=== PATIENT | female | born 1990 | race Caucasian/White ===

== ENCOUNTER 2017-01-05 22:12 | Emergency (ER) | payer SELFPAY ==
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
--- NOTE | 2017-01-06 02:02 | ED ORDER SUMMARY ---
..... Patient: BRIDGET MCKNIGHT OrderSheet [facility] VisitID: [id number] [place] [address] 26y, F Registration Date/Time: 01/05/2017 ORDER SHEET Weight: 104.3 kg Allergies: No Known Drug Allergy GENERAL ORDERS: GC/Chlamydia, Urine (Urine, Clean Catch) (debbie and initial stream (source is incorrect)) Urgent (00:34 01/06/2017 Jeanette Horn) (Ack 0:37 SRedmond) (0:59 TBowen R.N.) CBC w Diff Urgent (00:01/06/2017 Jeanette Horn) (Ack 0:37 SRedmond) (0:55 TBowen R.N.) CMP Urgent (00:01/06/2017 Jeanette Horn) (Ack 0:37 SRedmond) (0:55 TBowen R.N.) UA-Culture if indicated Urgent (00:01/06/2017 Jeanette Horn) (Ack 0:37 SRedmond) (0:59 TBowen R.N.) Urine Urgent (00:01/06/2017 Jeanette Horn) (Ack 0:37 SRedmond) (0:59 TBowen R.N.) Hepatitis Evaluation VII Urgent (00:01/06/2017 Jeanette Horn) (Ack 0:37 SRedmond) (0:55 TBowen R.N.) HIV I and II Urgent (00:01/06/2017 Jeanette Horn) (Ack 0:37 SRedmond) (0:55 TBowen R.N.) Chest 2V Urgent (:01/06/2017 Jeanette Horn) (1:11 LMuller) Lumbar Spine 2 or 3V Urgent (:01/06/2017 Jeanette Horn) (1:11 LMuller) MEDICATION ORDERS: Azithromycin PO 1000 mg (NOW) (00:35 01/06/2017 Jeanette Horn) (0:54 TBowen R.N.) Ceftriaxone IM 250 mg (once now with lidocaine) (00:35 01/06/2017 Jeanette Horn) (0:54 TBownoel R.N.) Lidocaine Injection 1% (with ceftriaxone) (00:35 01/06/2017 Jeanette Horn) (0:54 TBownoel R.N.) Flagyl PO 1000 mg (NOW) (00:37 01/06/2017 Jeanette Horn) (0:54 TBowen R.N.) Hydrocodone-APAP PO 5/325 mg (NOW, HIGH ALERT MEDICATION) (01:01/06/2017 Jeanette Horn) (Cancelled: Duplicate Order1:13 Jeanette Horn) Toradol IM 60 mg (NOW) (01:01/06/2017 Jeanette Horn) (1:26 TBownoel R.N.) IV FLUIDS: ORDER SHEET NOTES: [Electronically signed by Sandee Soto R.N. (02:15 01/06/2017)] [Electronically signed by Elias Harley Dr. (02:37 01/11/2017)] [Electronically locked/signed by Sandee Soto R.N. (02:15 01/06/2017)]
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
--- NOTE | 2017-01-06 02:02 | ED ORDER SUMMARY ---
..... Patient: BRIDGET MCKNIGHT OrderSheet [facility] VisitID: [id number] [place] [address] 26y, F Registration Date/Time: 01/05/2017 ORDER SHEET Weight: 104.3 kg Allergies: No Known Drug Allergy GENERAL ORDERS: GC/Chlamydia, Urine (Urine, Clean Catch) (debbie and initial stream (source is incorrect)) Urgent (00:34 01/06/2017 Jeanette Horn) (Ack 0:37 SRedmond) (0:59 TBowen R.N.) CBC w Diff Urgent (00:01/06/2017 Jeanette Horn) (Ack 0:37 SRedmond) (0:55 TBowen R.N.) CMP Urgent (00:01/06/2017 Jeanette Horn) (Ack 0:37 SRedmond) (0:55 TBowen R.N.) UA-Culture if indicated Urgent (00:01/06/2017 Jeanette Horn) (Ack 0:37 SRedmond) (0:59 TBowen R.N.) Urine Urgent (00:01/06/2017 Jeanette Horn) (Ack 0:37 SRedmond) (0:59 TBowen R.N.) Hepatitis Evaluation VII Urgent (00:01/06/2017 Jeanette Horn) (Ack 0:37 SRedmond) (0:55 TBowen R.N.) HIV I and II Urgent (00:01/06/2017 Jeanette Horn) (Ack 0:37 SRedmond) (0:55 TBowen R.N.) Chest 2V Urgent (:01/06/2017 Jeanette Horn) (1:11 LMuller) Lumbar Spine 2 or 3V Urgent (:01/06/2017 Jeanette Horn) (1:11 LMuller) MEDICATION ORDERS: Azithromycin PO 1000 mg (NOW) (00:35 01/06/2017 Jeanette Horn) (0:54 TBowen R.N.) Ceftriaxone IM 250 mg (once now with lidocaine) (00:35 01/06/2017 Jeanette Horn) (0:54 TBownoel R.N.) Lidocaine Injection 1% (with ceftriaxone) (00:35 01/06/2017 Jeanette Horn) (0:54 TBownoel R.N.) Flagyl PO 1000 mg (NOW) (00:37 01/06/2017 Jeanette Horn) (0:54 TBowen R.N.) Hydrocodone-APAP PO 5/325 mg (NOW, HIGH ALERT MEDICATION) (01:01/06/2017 Jeanette Horn) (Cancelled: Duplicate Order1:13 Jeanette Horn) Toradol IM 60 mg (NOW) (01:01/06/2017 Jeanette Horn) (1:26 TBownoel R.N.) IV FLUIDS: ORDER SHEET NOTES: [Electronically signed by Sandee Soto R.N. (02:15 01/06/2017)] [Electronically signed by Elias Harley Dr. (02:37 01/11/2017)] [Electronically locked/signed by Sandee Soto R.N. (02:15 01/06/2017)]
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
--- NOTE | 2017-01-11 02:38 | ED MAR SUMMARY ---
..... Medication Administration Record Merged With [facility] [address] [place] [address] Patient: BRIDGET MCKNIGHT Visit ID: [id number] 26y, F Weight: 104.3 kg Height/Length: 63 in BMI: 40.7 ALLERGIES: No Known Drug Allergy Given 01/06/2017 Lm R.N. Medication Administered: AZITHROMYCIN [PO], Dose: 1000 mg PO. Medication Ordered: Azithromycin PO 1000 mg (NOW). Given :01/06/2017 Lm, R.N. Medication Administered: CEFTRIAXONE [IM], Dose: 250 mg IM. Medication Ordered: Ceftriaxone IM 250 mg (once now with lidocaine). Given 01/06/2017 Lm R.N. Medication Administered: LIDOCAINE [INJECTION], Dose: 1 % Injection. Medication Ordered: Lidocaine Injection 1% (with ceftriaxone). Given 01/06/2017 Lm R.N. Medication Administered: FLAGYL [PO] (METRONIDAZOLE), Dose: 1000 mg PO. Medication Ordered: Flagyl PO 1000 mg (NOW). Given 01/06/2017 Lm, R.N. Medication Administered: TORADOL [IM] (KETOROLAC TROMETHAMINE), Dose: 60 mg IM. Medication Ordered: Toradol IM 60 mg (NOW).
--- NOTE | 2017-01-11 02:38 | ED MED RECONCILIATION SUMMARY ---
Patient: BRIDGET MCKNIGHT Medication Reconciliation Report [facility] VisitID: [id number] [place] [address] 26y, F Registration Date/Time: 01/05/2017 Weight: 104.3 kg Height/Length: 63 in. BMI: 40.7 ALLERGIES: No Known Drug Allergy The patient's Home Medications are listed below: NONE. The source(s) of the original Home Medication information: Not obtained. The following Medications were given to the patient in the Emergency Department: Azithromycin [PO] PO 1000 mg, administered: 01/06/2017 12:54:00 AM Flagyl [PO] PO 1000 mg, administered: 01/06/2017 12:54:00 AM Ceftriaxone [IM] IM 250 mg, administered: 01/06/2017 12:54:00 AM Lidocaine [Injection] Injection 1 %, administered: 01/06/2017 12:54:00 AM Toradol [IM] IM 60 mg, administered: 01/06/2017 1:26:00 AM The following Medications were prescribed to the patient: Cephalexin 500 mg: take 1 capsule orally every 8 hours for 5 days. No refill.(Disp 15 caps) -- lEias Harley Dr. [place] 5 mg / 325 mg tablets: take 1 orally every 6 hours as needed for pain. Dispense twelve (12). No refill. Substitution is permissible. -- Elias Harley Dr.
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
--- NOTE | 2017-01-11 02:38 | ED MED RECONCILIATION SUMMARY ---
Patient: BRIDGET MCKNIGHT Medication Reconciliation Report [facility] VisitID: [id number] [place] [address] 26y, F Registration Date/Time: 01/05/2017 Weight: 104.3 kg Height/Length: 63 in. BMI: 40.7 ALLERGIES: No Known Drug Allergy The patient's Home Medications are listed below: NONE. The source(s) of the original Home Medication information: Not obtained. The following Medications were given to the patient in the Emergency Department: Azithromycin [PO] PO 1000 mg, administered: 01/06/2017 12:54:00 AM Flagyl [PO] PO 1000 mg, administered: 01/06/2017 12:54:00 AM Ceftriaxone [IM] IM 250 mg, administered: 01/06/2017 12:54:00 AM Lidocaine [Injection] Injection 1 %, administered: 01/06/2017 12:54:00 AM Toradol [IM] IM 60 mg, administered: 01/06/2017 1:26:00 AM The following Medications were prescribed to the patient: Cephalexin 500 mg: take 1 capsule orally every 8 hours for 5 days. No refill.(Disp 15 caps) -- Elias Harley Dr. [place] 5 mg / 325 mg tablets: take 1 orally every 6 hours as needed for pain. Dispense twelve (12). No refill. Substitution is permissible. -- Elias Harley Dr.
--- NOTE | 2017-01-11 02:38 | ED MAR SUMMARY ---
..... Medication Administration Record Merged With [facility] [address] [place] [address] Patient: BRIDGET MCKNIGHT Visit ID: [id number] 26y, F Weight: 104.3 kg Height/Length: 63 in BMI: 40.7 ALLERGIES: No Known Drug Allergy Given 01/06/2017 Lm R.N. Medication Administered: AZITHROMYCIN [PO], Dose: 1000 mg PO. Medication Ordered: Azithromycin PO 1000 mg (NOW). Given :01/06/2017 Lm, R.N. Medication Administered: CEFTRIAXONE [IM], Dose: 250 mg IM. Medication Ordered: Ceftriaxone IM 250 mg (once now with lidocaine). Given 01/06/2017 Lm R.N. Medication Administered: LIDOCAINE [INJECTION], Dose: 1 % Injection. Medication Ordered: Lidocaine Injection 1% (with ceftriaxone). Given 01/06/2017 Lm R.N. Medication Administered: FLAGYL [PO] (METRONIDAZOLE), Dose: 1000 mg PO. Medication Ordered: Flagyl PO 1000 mg (NOW). Given 01/06/2017 Lm, R.N. Medication Administered: TORADOL [IM] (KETOROLAC TROMETHAMINE), Dose: 60 mg IM. Medication Ordered: Toradol IM 60 mg (NOW).
== END 2017-01-06 02:05 | disposition home or self-care (01) ==
LOC: ED SRH 22:12
DX: T76.21XA Adult sexual abuse, suspected, initial encounter (principal); N39.0 Urinary tract infection, site not specified; S20.211A Contusion of right front wall of thorax, initial encounter; S30.0XXA Contusion of lower back and pelvis, initial encounter; S30.1XXA Contusion of abdominal wall, initial encounter; Y93.9 Activity, unspecified; Y92.9 Unspecified place or not applicable; Y99.9 Unspecified external cause status
CPT/HCPCS: 90004; 90073; 90075; 90077; 90078; 90100; 90148; 90364; 90469; 91227; 91228; 92863; 93070; 95059; 99777